=== PATIENT | female | born 1980 | race Caucasian/White ===

== ENCOUNTER 2017-01-03 14:01 | Emergency (ER) | payer SELFPAY ==
[2017-01-03 14:05] VITALS: BP 117/74
--- NOTE | 2017-01-03 14:44 | ER Document Report ---
HPI - HPI Pain Level: 2 Notes: Patient presents the ED complaining of left trapezius muscle spasming and muscle knots times a few weeks. Patient states it began with and not near her neck, and since then she has noticed smaller not showing up her trapezius muscle that causes burning/ache/spasmy pain. Pain does not radiate otherwise. She still able to use her shoulder without any difficulties. Patient does lift heavy objects from time to time. She has not had anything for her pain. Patient also complains of a rash to the dorsal hand that comes and goes over the past couple weeks with an occasional dizziness and feeling feverish on and off. Patient states that she has not had any injury or abrasion to the area. And when she gets small cuts the bleed for long period of time. No other concerns or complaints at this time. She still eating and drink without difficulties. No significant past medical history. Her PCM is Dr. Duke. Denies any headache, fever, head injury, URI, sore throat, chest pain, palpitations, syncope, cough, shortness of breath, wheeze, dyspnea, abdominal pain, nausea/vomiting/diarrhea, urinary retention, dysuria, hematuria, melena, hematochezia, numbness/tingling, muscle paralysis/weakness. - ROS Notes: REVIEW OF SYSTEMS: CONSTITUTIONAL : Denies fever, chills, or sweats. Denies recent illness. EENT: Denies eye, ear, throat, or mouth pain or symptoms. Denies nasal or sinus congestion or discharge. Denies throat, tongue, or mouth swelling or difficulty swallowing. CARDIOVASCULAR: Denies chest pain. Denies palpitations or racing or irregular heart beat. Denies ankle edema. RESPIRATORY: Denies cough, cold, or chest congestion. Denies shortness of breath, difficulty breathing, or wheezing. GASTROINTESTINAL: Denies abdominal pain or distention. Denies nausea, vomiting , or diarrhea. Denies blood in vomitus, stools, or per rectum. Denies black, tarry stools. Denies constipation. GENITOURINARY: Denies difficulty urinating, painful urination, burning, frequency, blood in urine, or discharge. FEMALE GENITOURINARY: Denies vaginal bleeding, heavy or abnormal periods, irregular periods. Denies vaginal discharge or odor. MUSCULOSKELETAL: see hpi SKIN: see hpi NEUROLOGICAL: Denies confusion or altered mental status. Denies passing out or loss of consciousness. Denies dizziness or lightheadedness. Denies headache. Denies weakness or paralysis or loss of use of either side. Denies problems with gait or speech. Denies sensory loss, numbness, or tingling. Denies seizures. PSYCHIATRIC: Denies anxiety or stress. Denies depression, suicidal ideation, or homicidal ideation. ALL OTHER SYSTEMS REVIEWED AND NEGATIVE. Dictation was performed using mSnap voice recognition software - REPRODUCTIVE Reproductive: DENIES: : - DERM Skin Color: Normal Past Medical History - Social History Smoking Status: Current Every Day Smoker Family History: Reviewed & Not Pertinent Renal/ Medical History: Denies: Hx Peritoneal Dialysis Past Surgical History: Reports: Hx Breast Surgery - biopsy - Immunizations Immunizations up to date: No Hx Diphtheria, Pertussis, Tetanus Vaccination: Yes Vertical Provider Document - CONSTITUTIONAL Agree With Documented VS: Yes Notes: PHYSICAL EXAMINATION: GENERAL: Well-appearing, well-nourished and in no acute distress. HEAD: Atraumatic, normocephalic. EYES: Pupils equal round and reactive to light, extraocular movements intact, sclera anicteric, conjunctiva are normal. NECK: Normal range of motion, supple without lymphadenopathy. Non-tender. Spurling neg. LUNGS: Breath sounds clear to auscultation bilaterally and equal. No wheezes rales or rhonchi. HEART: Regular rate and rhythm without murmurs, rubs, gallops. ABDOMEN: Soft, nontender, nondistended abdomen. No guarding, no rebound. No masses appreciated. Normal bowel sounds present. No CVA tenderness bilaterally. no obvious hepatosplenomegally. Musculoskeletal: Lt UE: FROM to passive/active. Strength 5+/5. No RC deficits. + mild tenderness to the left trap mm with trigger points noted with mild spasming. Extremities: No cyanosis, clubbing, or edema b/l. Peripheral pulses 2+. Capillary refill less than 3 seconds. NEUROLOGICAL: Normal speech, normal gait. Normal sensory, motor exams PSYCH: Normal mood, normal affect. SKIN: petechiae rash to the dorsal left hand. No induration, abscess, streaks, or discharge. Non-tender. - INFECTION CONTROL TRAVEL OUTSIDE OF THE [place] IN LAST 30 DAYS: No - RESPIRATORY O2 Sat by Pulse Oximetry: 99 Course - Re-evaluation Re-evalutation: 08/28/17 15:40 Patient is an afebrile, well-hydrated, 36-year-old female who presents the ED with muscle spasming to her left trapezius and a petechiae rash NOS. Vitals are stable. PE otherwise unremarkable at this time. CBC, CMP, PTINR, PTT unremarkable for acute pathology. Low suspicion for any septic joint, sepsis, meningitis, nec fasc, severe anemia, or other emergent systemic condition at this time. Patient is aware that her condition can change from initial presentation and she needs to monitor symptoms closely and seek medical attention if any acute changes. Conservative measures for symptoms otherwise. Recheck with your PCM this week for further evaluation and follow-up. Return to the ED with any worsening/concerning symptoms otherwise as reviewed in discharge. Patient is in agreement. - Vital Signs Vital signs: Temp Pulse Resp BP Pulse Ox 98.2 F 83 16 117/74 99 01/03/17 14:04 01/03/17 14:04 01/03/17 14:04 01/03/17 14:04 01/03/17 14:04 - Laboratory Result Diagrams: 01/03/17 14:57 01/03/17 14:57 Discharge - Discharge Clinical Impression: Muscle spasm, Petechial rash Condition: Stable Disposition: HOME, SELF-CARE Instructions: Ice & Elevation ([facility]), Warm Packs ([facility]) Additional Instructions: Rest, Ice, Compression, Elevation Tylenol/ibuprofen as needed Light stretches daily Strength exercises as able Moist heat and massage may help F/u with your PCP this week for a recheck Consider consult(s) with Orthopedics/physical therapy for ongoing/worsening symptoms Return to the ED with any worsening symptoms and/or development of fever, headache, chest pain, palpitations, syncope, shortness of breath, trouble breathing, abdominal pain, n/v/d, muscle weakness/paralysis, numbness/tingling, swelling, redness, or other worsening symptoms that are concerning to you. Forms: Smoking Cessation Education Referrals: [facility] [Provider Group] - Follow up as needed CLAUDE DUKE MD [Primary Care Provider] - Follow up in 3-5 days
[2017-01-03 15:19] LABS: ABSOLUTE EOSINOPHILS # (AUTO) 0.2 10^3/uL (0.0-0.6); ABSOLUTE LYMPHOCYTES (AUTO) 2.9 10^3/uL (0.5-4.7); ABSOLUTE MONOCYTES (AUTO) 0.6 10^3/uL (0.1-1.4); BASOPHILS % (AUTO) 0.2 % (0-2); EOSINOPHILS % (AUTO) 2.4 % (0-6); HEMATOCRIT 41.4 % (36.0-47.0); HEMOGLOBIN 14.8 g/dL (12.0-15.5); LYMPHOCYTES % (AUTO) 33.1 % (13-45); MEAN CORPUSCULAR HEMOGLOBIN 34.4 pg (27.0-33.4); MEAN CORPUSCULAR HGB CONC 35.7 g/dL (32.0-36.0); MEAN CORPUSCULAR VOLUME 97 fl (80-97); MONOCYTES % (AUTO) 7.4 % (3-13); RED BLOOD COUNT 4.29 10^6/uL (3.72-5.28); RED CELL DISTRIBUTION WIDTH 12.8 % (11.5-14.0); SEGMENTED NEUTROPHILS % (AUTO) 56.9 % (42-78); WHITE BLOOD COUNT 8.8 10^3/uL (4.0-10.5)
[2017-01-03 15:24] LABS: PROTHROMBIN TIME 12.3 SEC (11.4-15.4)
[2017-01-03 15:25] LABS: PARTIAL THROMBOPLASTIN TIME 32.9 SEC (23.5-35.8)
[2017-01-03 15:38] LABS: ALANINE AMINOTRANSFERASE 28 U/L (9-52); ALBUMIN 4.5 g/dL (3.5-5.0); ALKALINE PHOSPHATASE 54 U/L (38-126); ANION GAP 11 (5-19); ASPARTATE AMINO TRANSFERASE 25 U/L (14-36); BILIRUBIN,DIRECT 0.3 mg/dL (0.0-0.4); BILIRUBIN,TOTAL 0.5 mg/dL (0.2-1.3); BLOOD UREA NITROGEN 10 mg/dL (7-20); CALCIUM 9.7 mg/dL (8.4-10.2); CARBON DIOXIDE 22 mmol/L (22-30); CHLORIDE 106 mmol/L (98-107); CREATININE RESULT 0.63 mg/dL (0.52-1.25); GLUCOSE 101 mg/dL (75-110); POTASSIUM 4.1 mmol/L (3.6-5.0); TOTAL PROTEIN 7.2 g/dL (6.3-8.2)
== END 2017-01-03 15:55 | disposition home or self-care (01) ==
LOC: ER 14:01
DX: M62.830 Muscle spasm of back (principal); R21 Rash and other nonspecific skin eruption; R23.3 Spontaneous ecchymoses; R42 Dizziness and giddiness; F17.200 Nicotine dependence, unspecified, uncomplicated
CPT/HCPCS: 36415; 80053; 85025; 85610; 85730; 99283

== ENCOUNTER 2017-12-21 14:48 | Emergency (ER) | payer BC ==
[2017-12-21 14:53] VITALS: BP 114/71
[2017-12-21] MEDS ORDERED: PREDNISONE 20 MG TABLET PO ONE (15:31)
[2017-12-21] MEDS ORDERED: PREDNISONE 20 MG TABLET ONE (15:35)
--- NOTE | 2017-12-21 15:35 | ER Document Report ---
HPI - HPI Patient complains to provider of: Skin rash Onset: Other - 3 days Onset/Duration: Persistent Pain Level: Denies Context: Patient complains of chronic skin pruritus with peeling that has worsened recently. Patient states of the past 3 days she has developed red rash to the chest and upper arms. Patient is concerned that she may have hives. Patient denies any new foods medications or detergents. Associated Symptoms: denies: Nonproductive cough, Productive cough, Fever, Nausea Exacerbated by: Denies Relieved by: Denies Similar symptoms previously: Yes Recently seen / treated by doctor: No - ROS ROS below otherwise negative: Yes Systems Reviewed and Negative: Yes All other systems reviewed and negative - CONSTITUTIONAL Constitutional: DENIES: Fever - EENT EENT: DENIES: Sore Throat - RESPIRATORY Respiratory: DENIES: Coughing - GASTROINTESTINAL Gastrointestinal: DENIES: Nausea, Patient vomiting - REPRODUCTIVE Reproductive: DENIES: : - DERM Skin Color: Erythema Skin Problems: Rash Past Medical History - General Information source: Patient - Social History Smoking Status: Current Every Day Smoker Chew tobacco use (# tins/day): No Smoking Education Provided: Yes Frequency of alcohol use: None Drug Abuse: None Occupation: [employer] Lives with: Family Family History: Reviewed & Not Pertinent Patient has suicidal ideation: No Patient has homicidal ideation: No Renal/ Medical History: Denies: Hx Peritoneal Dialysis Skin Medical History: Reports Hx Eczema Past Surgical History: Reports: Hx Breast Surgery - biopsy - Immunizations Immunizations up to date: No Hx Diphtheria, Pertussis, Tetanus Vaccination: Yes Vertical Provider Document - CONSTITUTIONAL Agree With Documented VS: Yes Exam Limitations: No Limitations General Appearance: WD/WN, No Apparent Distress - INFECTION CONTROL TRAVEL OUTSIDE OF THE [place] IN LAST 30 DAYS: No - HEENT HEENT: Atraumatic, Normal ENT Exam, Normocephalic Notes: no angioedema - NECK Neck: Normal Inspection, Supple. negative: Lymphadenopathy-Left, Lymphadenopathy-Right - RESPIRATORY Respiratory: Breath Sounds Normal, No Respiratory Distress - CARDIOVASCULAR Cardiovascular: Regular Rate, Regular Rhythm - BACK Back: Normal Inspection - MUSCULOSKELETAL/EXTREMETIES Musculoskeletal/Extremeties: ARJUN RICHARDS - NEURO Level of Consciousness: Awake, Alert, Appropriate Motor/Sensory: No Motor Deficit - DERM Integumentary: Warm, Dry, Rash - Scaling dry flaking rash with cracking noted to palmar surface of hands bilaterally. Patient with erythematous macular rash distributed to trunk and upper extremities bilaterally Course - Re-evaluation Re-evalutation: 12/21/17 Patient without any hives or urticarial rash. Patient with what appears to be eczema form type rash to the palmar surface of the hands as well as erythematous papular rash in a distribution that looks consistent with areas of solar exposure. Patient reports last sun exposure was 1 week ago. Patient without any noted rash where her bra strap and take top straps are. Respirations even and unlabored, patient without any angioedema. Patient's vital signs stable for discharge. Patient encouraged to follow-up with dermatology for further evaluation of her symptoms. - Vital Signs Vital signs: Temp Pulse Resp BP Pulse Ox 98.4 F 104 H 16 114/71 98 12/21/17 14:53 12/21/17 14:53 12/21/17 14:53 12/21/17 14:53 12/21/17 14:53 Discharge - Discharge Clinical Impression: Skin rash Condition: Stable Disposition: HOME, SELF-CARE Instructions: Steroid Medication Additional Instructions: Return immediately for any new or worsening symptoms Followup with your primary care provider, call tomorrow to make a followup appointment Follow-up with a radial drill press operator for plastic for further evaluation Prescriptions: Hydroxyzine HCl [Atarax 25 mg Tablet] 1 - 2 tab PO QID #25 tablet Prednisone [Deltasone 20 mg Tablet] 3 tab PO DAILY 5 Days tablet Triamcinolone Acetonide [Aristocort 0.1% Cream] 1 applic TP TID #60 gm Forms: Smoking Cessation Education, Return to Work Referrals: CLAUDE DUKE MD [Primary Care Provider] - Follow up as needed VERONICA KILPATRICK DO [ACTIVE STAFF] - Follow up tomorrow
== END 2017-12-21 15:46 | disposition home or self-care (01) ==
LOC: ER 14:48
DX: R21 Rash and other nonspecific skin eruption (principal); F17.200 Nicotine dependence, unspecified, uncomplicated
CPT/HCPCS: 99282; J7512

== ENCOUNTER 2017-12-28 11:53 | Emergency (ER) | payer BC ==
--- NOTE | 2017-12-28 13:25 | ER Document Report ---
ED Medical Screen (RME) - General Chief Complaint: Numbness Stated Complaint: LEG PAIN Time Seen by Provider: 12/28/17 13:13 Mode of Arrival: Ambulatory Information source: Patient Notes: This is a 37-year-old female recently experienced hives that was treated with high-dose prednisone's for several days who presents to the emergency room with dry peeling skin on the palms and forearms. Patient also reports tingling sensation to the lower legs with swelling bilaterally. Patient denies any calf pain, chest pain, shortness of breath. TRAVEL OUTSIDE OF THE [place] IN LAST 30 DAYS: No - HPI Onset: Last week Onset/Duration: Gradual Quality of pain: No pain Severity: None Pain Level: Denies Associated Symptoms: denies: Chest pain, Fever, Shortness of breath Exacerbated by: Denies Relieved by: Denies Similar symptoms previously: No Recently seen / treated by doctor: Yes - Related Data Smoking: Non-smoker Frequency of alcohol use: None Drug Abuse: None Allergies/Adverse Reactions: codeine [Codeine] Allergy (Verified 12/28/17 11:54) Hives Past Medical History - General Information source: Patient - Social History Cigarette use (# per day): No Chew tobacco use (# tins/day): No Frequency of alcohol use: Occasional Drug Abuse: None Lives with: Family Family history: None - Past Medical History Cardiac Medical History: Denies: Hx Hypertension Pulmonary Medical History: Denies: Hx Asthma EENT Medical History: Reports: None Neurological Medical History: Reports: None Endocrine Medical History: Reports: None Renal/ Medical History: Reports: None. Denies: Hx Peritoneal Dialysis Malignancy Medical History: Reports: None GI Medical History: Reports: None Musculoskeltal Medical History: Reports None Skin Medical History: Reports Hx Eczema Past Surgical History: Reports: Hx Breast Surgery - biopsy - Immunizations Immunizations up to date: No Hx Diphtheria, Pertussis, Tetanus Vaccination: Yes Review of Systems - Review of Systems Constitutional: denies: Chills, Fever EENT: No symptoms reported Cardiovascular: Edema. denies: Chest pain, Palpitations, Heart racing Respiratory: denies: Cough, Hemoptysis, Short of breath Gastrointestinal: No symptoms reported Genitourinary: No symptoms reported Female Genitourinary: No symptoms reported Musculoskeletal: See HPI Skin: See HPI Hematologic/Lymphatic: No symptoms reported Neurological/Psychological: No symptoms reported Physical Exam - Vital signs Vitals: Temp Pulse Resp BP Pulse Ox 98.4 F 76 18 127/73 H 98 12/28/17 12:02 12/28/17 12:02 12/28/17 12:02 12/28/17 12:02 12/28/17 12:02 Notes: Physical exam: GENERAL: 37-year-old female, alert and 3, no acute distress. Vital signs are stable HEAD: Atraumatic, normocephalic. EYES: Pupils equal round and reactive to light, extraocular movements intact, sclera anicteric, conjunctiva are normal. ENT: TMs normal, nares patent, oropharynx clear without exudates. Moist mucous membranes. NECK: Normal range of motion, supple without obvious mass or JVD. LUNGS: Breath sounds clear to auscultation bilaterally and equal. No wheezes rales or rhonchi. HEART: Regular rate and rhythm without murmurs, rubs or gallops. ABDOMEN: Soft, normoactive bowel sounds. No tenderness to palpation. No guarding, no rebound. No masses appreciated. EXTREMITIES: Mild 1+ edema bilaterally NEUROLOGICAL: Cranial nerves II through XII grossly intact. Normal speech, moving all extremities. PSYCH: Normal mood, normal affect. SKIN: Warm, Dry, normal turgor, no rashes or lesions noted. Course - Re-evaluation Re-evalutation: 12/28/17 19:47 I had a long discussion with the patient. She looks quite stable at this time. She has not had any chest pain or shortness of breath. She recently had hives and was treated with prednisone and now has some mild lower extremity edema. Her thyroid function tests are normal and her renal function tests are normal. I think the swelling is probably secondary to the steroids and I will have her follow-up with her primary care doctor. She does have residual excoriation of the palms after treatment with the steroids. I have given her referral to care transitions manager. - Vital Signs Vital signs: Temp Pulse Resp BP Pulse Ox 97.5 F 71 16 126/72 H 97 12/28/17 15:29 12/28/17 15:29 12/28/17 15:29 12/28/17 15:29 12/28/17 15:29 - Laboratory Result Diagrams: 12/28/17 13:30 12/28/17 13:30 Laboratory results interpreted by me: 12/28/17 13:30 WBC 12.1 H Doctor's Discharge - Discharge Clinical Impression: Edema lower extremity Condition: Stable Disposition: HOME, SELF-CARE Additional Instructions: As we discussed, your kidney tests, liver function tests, thyroid studies, sugar and electrolytes were all good. At this point, I would say that the swelling to the lower extremities is due to the recent steroids and usually the body will correct itself over the next week or 2. I would follow-up with Dr. Duke who will be able to see all these lab tests. Return to the emergency room for worsening swelling, chest pain, shortness of breath or any concerns or getting worse. As far as the recent hives and the rash should she have now, I would follow-up with a care transitions manager. Follow-up with a care transitions manager: [facility] [place] [id number] , [place], [place] [phone] Referrals: CLAUDE DUKE MD [Primary Care Provider] - Follow up as needed
[2017-12-28 13:51] LABS: ABSOLUTE BASOPHILS # (AUTO) 0.1 10^3/uL (0.0-0.2); ABSOLUTE EOSINOPHILS # (AUTO) 0.3 10^3/uL (0.0-0.6); ABSOLUTE LYMPHOCYTES (AUTO) 3.9 10^3/uL (0.5-4.7); ABSOLUTE MONOCYTES (AUTO) 0.9 10^3/uL (0.1-1.4); BASOPHILS % (AUTO) 0.6 % (0-2); EOSINOPHILS % (AUTO) 2.4 % (0-6); HEMATOCRIT 39.8 % (36.0-47.0); HEMOGLOBIN 13.7 g/dL (12.0-15.5); LYMPHOCYTES % (AUTO) 31.9 % (13-45); MEAN CORPUSCULAR HEMOGLOBIN 33.3 pg (27.0-33.4); MEAN CORPUSCULAR HGB CONC 34.4 g/dL (32.0-36.0); MEAN CORPUSCULAR VOLUME 97 fl (80-97); MONOCYTES % (AUTO) 7.1 % (3-13); PLATELET COUNT 361 10^3/uL (150-450); RED CELL DISTRIBUTION WIDTH 12.7 % (11.5-14.0); TOTAL CELLS COUNTED % (AUTO) 100 %; WHITE BLOOD COUNT 12.1 10^3/uL (4.0-10.5)
[2017-12-28 14:13] LABS: ALANINE AMINOTRANSFERASE 25 U/L (9-52); ALBUMIN 3.9 g/dL (3.5-5.0); ALKALINE PHOSPHATASE 45 U/L (38-126); ANION GAP 10 (5-19); ASPARTATE AMINO TRANSFERASE 22 U/L (14-36); BILIRUBIN,DIRECT 0.3 mg/dL (0.0-0.4); BILIRUBIN,TOTAL 0.4 mg/dL (0.2-1.3); BLOOD UREA NITROGEN 12 mg/dL (7-20); CALCIUM 8.9 mg/dL (8.4-10.2); CARBON DIOXIDE 26 mmol/L (22-30); CHLORIDE 105 mmol/L (98-107); GLUCOSE 87 mg/dL (75-110); SODIUM 141.2 mmol/L (137-145); TOTAL PROTEIN 6.6 g/dL (6.3-8.2)
[2017-12-28 14:51] LABS: FREE T3 4.42 pg/mL (2.77-5.27); FREE T4 (FREE THYROXINE) 1.3 ng/dL (0.78-2.19)
[2017-12-28 15:05] LABS: THYROID STIMULATING HORMONE 1.29 uIU/mL (0.47-4.68)
[2017-12-28 15:31] VITALS: BP 126/72
== END 2017-12-28 15:31 | disposition home or self-care (01) ==
LOC: ER 11:53
DX: M79.89 Other specified soft tissue disorders (principal); R20.0 Anesthesia of skin; R20.2 Paresthesia of skin; Z88.6 Allergy status to analgesic agent
CPT/HCPCS: 36415; 80053; 84439; 84443; 84481; 85025; 99284

== ENCOUNTER → 2018-11-30 | Outpatient (CLI) | payer BC ==
[2018-11-30 09:41] LABS: HEMATOCRIT 41.9 % (36.0-47.0); HEMOGLOBIN 14.5 g/dL (12.0-15.5); MEAN CORPUSCULAR HEMOGLOBIN 33.7 pg (27.0-33.4); MEAN CORPUSCULAR HGB CONC 34.7 g/dL (32.0-36.0); MEAN CORPUSCULAR VOLUME 97 fl (80-97); PLATELET COUNT 369 10^3/uL (150-450); RED BLOOD COUNT 4.31 10^6/uL (3.72-5.28); RED CELL DISTRIBUTION WIDTH 12.8 % (11.5-14.0); WHITE BLOOD COUNT 7.2 10^3/uL (4.0-10.5)
--- NOTE | 2018-11-30 09:48 | RADIOLOGY REPORT (SQ) ---
EXAM DESCRIPTION: U/S EXTREMITY NONVASCULAR LTD COMPLETED DATE/TIME: 11/30/2018 9:06 am REASON FOR STUDY: UNSPECIFIED LUMP IN THE LEFT BREAST, UNSPECIFIED QUADRANT (N63.20) N63.20 UNSPECI FIED LUMP IN THE LEFT BREAST, UNSPECIFIED QUAD COMPARISON: None. TECHNIQUE: Dynamic and static grayscale images acquired of the localized site of clinical concern an d recorded on PACS. Additional selected color Doppler and spectral images recorded. SITE OF CONCERN: Ultrasound of the left axilla. The patient has had prior ultrasound of the breast a t another facility and is also scheduled for an MRI of the breast today. LIMITATIONS: None. FINDINGS: Several lymph nodes are present and range in size from 8 x 9 mm to 1.4 x 2.0 cm. The lymp h nodes are well-circumscribed with smooth margins and fatty niurka. No suspicious cortical thickening or nodularity. IMPRESSION: LYMPH NODES ARE PRESENT IN THE LEFT AXILLA WHICH DO NOT HAVE PARTICULARLY WORRISOME SONO GRAPHIC APPEARANCE. TECHNICAL DOCUMENTATION: JOB ID: [id number] [employer]- All Rights Reserved Reading location - IP/workstation name: [email or web address]
[2018-11-30 10:02] LABS: ALANINE AMINOTRANSFERASE 21 U/L (9-52); ALBUMIN 4.4 g/dL (3.5-5.0); ALKALINE PHOSPHATASE 46 U/L (38-126); ANION GAP 8 (5-19); ASPARTATE AMINO TRANSFERASE 23 U/L (14-36); BILIRUBIN,DIRECT 0.2 mg/dL (0.0-0.4); BILIRUBIN,TOTAL 0.4 mg/dL (0.2-1.3); BLOOD UREA NITROGEN 10 mg/dL (7-20); CALCIUM 9.6 mg/dL (8.4-10.2); CARBON DIOXIDE 28 mmol/L (22-30); CHLORIDE 105 mmol/L (98-107); GLUCOSE 98 mg/dL (75-110); POTASSIUM 4.5 mmol/L (3.6-5.0); TOTAL PROTEIN 7.2 g/dL (6.3-8.2)
--- NOTE | 2018-12-05 17:02 | RADIOLOGY REPORT (SQ) ---
EXAM DESCRIPTION: MRI BREAST BILATERAL W/WO COMPLETED DATE/TIME: 12/04/2018 8:26 am REASON FOR STUDY: UNSPECIFIED LUMP IN THE LEFT BREAST, UNSPECIFIED QUADRANT (N63.20) N63.20 UNSPECI FIED LUMP IN THE LEFT BREAST, UNSPECIFIED QUAD COMPARISON: Mammography and ultrasound PATHOLOGIC CORRELATION: Pathology report. Suspicious for phylloides tumor. CONTRAST TYPE AND DOSE: 20 mL Magnevist. RENAL FUNCTION: Not indicated. TECHNIQUE: MR imaging performed with a dedicated breast coil. Pre contrast T1 and T2 weighted images . Pre contrast and post contrast enhanced T1 weighted images with fat saturation. Subtraction images, 3D thick and thin MIPS, and kinetic analysis performed on an independent workstat ion. ([employer] workstation) Magnet strength: 1.5 T LIMITATIONS: None. FINDINGS: BREAST DENSITY: b. There are scattered areas of fibroglandular density. BACKGROUND PARENCHYMAL ENHANCEMENT:Minimal. RIGHT BREAST: No enhancing or suspicious masses. No clumped, regional/segmental ductal enhancement. CHEST WALL: Normal tissue planes. No abnormal internal mammary nodes. AXILLA: Normal axillary and retro-pectoral nodes. LEFT BREAST:Diffuse earlier irregular enhancing mass lesion with cystic components. Lobular. Measur es 7 x 7 x 9 cm. Encompasses the entire upper half of the breast. No clumped, regional/segmental d uctal enhancement. CHEST WALL: Normal tissue planes. No abnormal internal mammary nodes. AXILLA: Normal axillary and retro-pectoral nodes. OTHER:No identified liver, bone, or lung lesions. No other significant incidental findings. IMPRESSION: Large lobular heterogeneously enhancing mass lesion with cystic changes. Most consisten t with phylloides tumor. No enlarged axillary lymph nodes. BIRAD: RIGHT BREAST: 1 Negative. LEFT BREAST: 4 Suspicious. Biopsy suspicious for phylloides tumor. . RECOMMENDATION: RECOMMENDED FOLLOW-UP: Surgical protocol. TECHNICAL DOCUMENTATION: JOB ID: [id number] [employer]- All Rights Reserved Reading location - IP/workstation name: [email or web address]
== END ==
LOC: RAD 07:45
PROVIDERS: ATTEND Surgery
DX: N63.32 Unspecified lump in axillary tail of the left breast (principal); G47.33 Obstructive sleep apnea (adult) (pediatric); G35 Multiple sclerosis; H81.49 Vertigo of central origin, unspecified ear
CPT/HCPCS: 36415; 84443; 85027; 80053; 77049; 76882; A9576

== ENCOUNTER 2019-01-10 08:45 | Observation (INO) | payer BC ==
[2019-01-05 11:01] LABS: HEMATOCRIT 41.7 % (36.0-47.0); HEMOGLOBIN 14.4 g/dL (12.0-15.5); MEAN CORPUSCULAR HEMOGLOBIN 33.6 pg (27.0-33.4); MEAN CORPUSCULAR HGB CONC 34.5 g/dL (32.0-36.0); MEAN CORPUSCULAR VOLUME 97 fl (80-97); PLATELET COUNT 332 10^3/uL (150-450); RED BLOOD COUNT 4.28 10^6/uL (3.72-5.28); RED CELL DISTRIBUTION WIDTH 12.4 % (11.5-14.0); WHITE BLOOD COUNT 8.2 10^3/uL (4.0-10.5)
[2019-01-05 11:25] LABS: ANION GAP 10 (5-19); BLOOD UREA NITROGEN 6 mg/dL (7-20); CALCIUM 9.7 mg/dL (8.4-10.2); CARBON DIOXIDE 24 mmol/L (22-30); CHLORIDE 104 mmol/L (98-107); GLUCOSE 102 mg/dL (75-110); POTASSIUM 4.3 mmol/L (3.6-5.0)
[~2019-01-10 08:45] MED LIST: CEFAZOLIN 2 GM/D5W RTU 2 GM/50 ML RTUPB IV PRN; CEFAZOLIN SODIUM 2 GM in DEXTROSE 5%-WATER 100 ML IV PRN
[2019-01-10] MEDS ORDERED: KETOROLAC TROMETHAMINE 60 MG/2 ML SDV ONE (09:51)
[2019-01-10] MEDS ORDERED: FENTANYL CITRATE INJ/PF 100 MCG/2 ML AMPUL ONE ×2 (09:51→12:28)
[2019-01-10] MEDS ORDERED: ONDANSETRON HCL INJ/PF 4 MG/2 ML SDV ONE (09:52)
[2019-01-10] MEDS ORDERED: PROPOFOL INJ 200 MG/20 ML VIAL IV ONE (09:52)
[2019-01-10] MEDS ORDERED: DEXAMETHASONE SOD PHOSPHATE INJ 4 MG/1 ML VIAL ONE (09:52)
[2019-01-10] MEDS ORDERED: MIDAZOLAM 2 MG/2 ML INJ ONE (09:52)
[2019-01-10] MEDS ORDERED: BUPIVACAINE HCL 0.25 % INJ/PF (2.5 MG/1 ML) 30 ML VIAL ONE (10:14)
[2019-01-10] MEDS ORDERED: MORPHINE SULFATE 10 MG/ML INJ IV PRN ×2 (12:22→12:24)
[2019-01-10] MEDS ORDERED: DIPHENHYDRAMINE HCL 50 MG/ML VIAL IV PRN (12:24)
[2019-01-10] MEDS ORDERED: OXYCODONE-ACETAMINOPHEN 5-325 MG TABLET PO PRN ×2 (12:24)
[2019-01-10] MEDS ORDERED: ONDANSETRON HCL INJ/PF 4 MG/2 ML SDV IV PRN ×2 (12:24→12:29)
[2019-01-10] MEDS ORDERED: MEPERIDINE HCL/PF INJ 25 MG/1 ML DISP.SYRIN IV PRN (12:24)
[2019-01-10] MEDS ORDERED: PROMETHAZINE HCL INJ 25 MG/1 ML VIAL IV PRN ×2 (12:24)
[2019-01-10] MEDS ORDERED: FENTANYL CITRATE INJ/PF 100 MCG/2 ML AMPUL IV PRN ×3 (12:24)
[2019-01-10] MEDS ORDERED: HYDROCODONE/ACETAMINOPHEN 10-325 MG TABLET PO PRN (12:32)
[2019-01-10] MEDS ORDERED: LIDOCAINE 2% JELLY 30 ML TUBE ONE (12:56)
[2019-01-10] MEDS ORDERED: LIDOCAINE 2% JELLY 5 ML TUBE TP PRN (13:26)
[2019-01-10] MEDS ORDERED: LIDOCAINE 2% INJ-PF (20 MG/ML) 2 ML AMPUL ONE (14:05)
[2019-01-10] MEDS ORDERED: SUCCINYLCHOLINE CHLORIDE INJ 200 MG/10 ML VIAL ONE (14:05)
--- NOTE | 2019-01-10 16:45 | PDOC DISCHARGE SUMMARY ---
General - Admit/Disc Date/PCP Admission Date/Primary Care Provider: 01/10/19 12:22 CLAUDE DUKE MD Discharge Date: 01/10/19 - Discharge Diagnosis (1) Neoplasm of left breast Is this a current diagnosis for this admission?: Yes - Additional Information Resuscitation Status: Full Code Discharge Diet: As Tolerated Discharge Activity: Balance Activity w/Rest Home Medications: Dextroamphetamine/Amphetamine [Adderall 20 mg Tablet] 1 tab PO DAILY 01/05/19 History of Present Illness History of Present Illness: BOO GONZALEZ is a 38 year old female admitted for left simple mastectomy due to a large breast mass. She underwent the procedure, and was taken to the floor in stable condition. The evening of surgery, the patient was doing very well. She denied any pain. She was eating a regular diet, walking in the hallways, and was comfortable on oral pain medications only. It was felt at this time that she had reached maximal hospital benefit and was fit for discharge. Physical Exam Vital Signs: Temp Pulse Resp BP Pulse Ox 98.3 F 87 16 114/73 98 01/10/19 16:15 01/10/19 16:15 01/10/19 16:15 01/10/19 16:15 01/10/19 16:00 Intake & Output 01/09/19 01/10/19 01/11/19 06:59 06:59 06:59 Intake Total 1300 Output Total 100 Balance 1200 Weight 77.1 kg Results Laboratory Results: 01/05/19 10:33 01/05/19 10:33 Qualifiers - * PATIENT BEING DISCHARGED WITH ANY OF THE FOLLOWING DIAGNOSIS: No Acute Heart Failure - Is this a Heart Failure Patient?: No Plan Discharge Plan: Discharge home. Diet as tolerated. Activity: Nonstrenuous. Follow-up with me in 1 week. Drain and measure WYATT output every day. Okay to start showering on Tuesday. Remove Judd wrap to shower, otherwise wear Judd wrap at all times. Fillmore 10/325 mg p.o. every 6 hours as needed pain. Time Spent: Less than 30 Minutes
[2019-01-10 17:27] VITALS: BP 108/68
--- NOTE | 2019-01-10 17:30 | Operative Report ---
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 OPERATION: Left simple mastectomy SURGEON: ROSAS NELSON ANESTHESIA: GA TISSUE REMOVED OR ALTERED: Left simple mastectomy COMPLICATIONS: None apparent ESTIMATED BLOOD LOSS: 20 cc PROCEDURE: Drains/implants: 15 Australian round Alexei drain. Procedure in detail: After informed consent was obtained, the patient was brought into the operating room and laid in the supine position. The area of the left breast was prepped and draped in a normal sterile fashion. An elliptical incision was created on the left breast. The incision was carried past the inferior to the nipple-areolar complex, oriented in a diagonal fashion. The tumor was mainly present in the supra-areolar portion of the breast. Secondary to this, a larger portion of skin was taken superior to the nipple- areolar complex. Once the elliptical incision was made, superior and inferior flaps were created. The superior flap was dissected free using electrocautery. This was done up to the chest wall in the infraclavicular region. The inferior flaps were created in similar fashion, down to the inframammary fold. Once the flaps were raised, attention was turned to the medial aspect of the breast. The medial portion of the breast was freed from the pectoralis muscle, taking with it the pectoralis fascia. The breast was rotated laterally, until the border of the pectoralis major muscle was identified. The specimen was then amputated at the border of the pectoralis major. The specimen was marked: short stitch superior, long stitch lateral. Inspection was then undertaken. There was an area where the tumor directly abutted the skin. A portion of skin was reexcised, as additional anterior margin. This skin was directly adjacent to the tumor. The mastectomy site was inspected. Hemostasis was achieved using electrocautery and 3-0 Vicryl suture ligation. The area was irrigated. Hemostasis was ensured. A 15 Australian round Alexei drain was then placed into the wound bed through a separate stab incision. The drain was sutured in place using 2-0 nylon suture. The subcutaneous tissues were then closed using 3-0 Vicryl suture in simple interrupted fashion. The overlying skin was closed using 4-0 Vicryl Rapide suture in subcuticular fashion. Dressings were then placed, and the procedure was concluded. All sponge, instrument, and needle counts were correct. Condition: Stable.
[2019-01-10] MEDS ORDERED: DOCUSATE SODIUM 100 MG CAPSULE PO SCH (18:00)
[2019-01-10] MEDS ORDERED: ONDANSETRON 4 MG TAB.RAPDIS PO ONE (18:15)
== END 2019-01-10 18:39 | disposition home or self-care (01) ==
LOC: OROUT 08:45 → 4N 12:22
PROVIDERS: ADMIT Surgery; ATTEND Surgery
PROC: 0HTU0ZZ Resection of Left Breast, Open Approach (ICD-10-PCS; principal; 2019-01-10 11:00)
DX: D48.62 Neoplasm of uncertain behavior of left breast (principal); F17.210 Nicotine dependence, cigarettes, uncomplicated; Z80.3 Family history of malignant neoplasm of breast
CPT/HCPCS: 36415; 85027; 81025; 80048; 88342 ×2; 88341 ×2; 88307 ×2; 00400; 19303; J2250; J0690; J1100; J1885; S0119; J3010; J0330; J2405; J7060; J2704; J3490; 400; G0378